=== PATIENT | male | born 1945 | race African-American/Black ===

== ENCOUNTER 2018-09-17 15:43 | Inpatient (IN) ==
[2018-09-17] MEDS ORDERED: NS 1,000 ML IV ONE (16:09)
--- NOTE | 2018-09-17 16:20 | EKG Report ---
Test Performed on : 09/17/2018 3:46:39 PM Test Reason : PALPITATIONS Blood Pressure : / mmHG Vent. Rate : 123 BPM Atrial Rate : 123 BPM P-R Int : 142 ms QRS Dur : 066 ms QT Int : 306 ms P-R-T Axes : 073 -70 084 degrees QTc Int : 438 ms Sinus tachycardia. Biatrial enlargement Left axis deviation Septal infarct (cited on or before 06-AUG-2012) Abnormal ECG When compared with ECG of 29-APR-2015 09:31, QRS axis shifted left Questionable change in initial forces of Anterior leads T wave amplitude has increased in Anterior leads Unconfirmed Result
[2018-09-17 16:31] LABS: BASO# 0.03 X1000 (0.0-0.2); BASO% 0.4 % (0.0-0.8); EOS# 0.06 X1000 (0.0-0.7); EOS% 0.7 % (0.0-10.0); HEMATOCRIT 49.8 % (42.0-52.0); HEMOGLOBIN 17.6 g/dL (14.0-18.0); IMM GRAN# 0.04 X1000 (0.0-0.04); IMM GRAN% 0.5 % (0.0-0.5); LYMPH# 1.99 X1000 (1.2-3.4); LYMPH% 24.3 % (20.5-51.1); MCH 31.5 PG (27-31); MCHC 35.3 g/dL (33-37); MCV 89.1 FL (81-99); MONO# 1.07 X1000 (0.11-0.59); NEUT# 5.01 X1000 (1.4-6.5); NEUT% 61.1 % (42.2-75.2); PLT 184 X1000 (130-400); RBC 5.59 XMIL (4.7-6.1); RDW 15.8 % (11.5-14.5)
--- NOTE | 2018-09-17 16:34 | Diag Imaging Result Doc PS360 ---
CHEST-1 VIEW - 09/17/2018 INDICATION: tachycardia COMPARISON: 05/23/2018 FINDINGS: There is a left suprahilar airspace opacity. This may be an infiltrate or mass. This measures about 4 cm. No other infiltrates. Heart size and pulmonary vascularity is normal. IMPRESSION: Left suprahilar mass. Chest CT recommended. Intravenous contrast is suggested, but optional. Electronically signed by Drew Charles 09/17/2018 4:31 PM
[2018-09-17 17:04] LABS: AGAP 13; CHLORIDE 92 mmol/L (98-107); GLUCOSE 128 mg/dL (70-104); POTASSIUM 4.3 mmol/L (3.5-5.1); SODIUM 129 mmol/L (136-145); TCO2 24 mmol/L (25-35)
[2018-09-17 17:05] LABS: ALB/GLOB RATIO 0.9; ALKALINE PHOSPHATASE 129 U/L (32-122); BUN 15 mg/dL (8-22); CALCIUM 9.4 mg/dL (8.8-10.2); COSMO 261; CREATININE 0.9 mg/dL (0.7-1.2); ESTIMATED GFR > 60; GOT 25 U/L (10-34); GPT 19 U/L (10-44); MAGNESIUM 2.1 mg/dL (1.5-2.7); TOTAL BILIRUBIN 0.49 mg/dL (0.20-1.00); TOTAL PROTEIN 8.5 g/dL (6.3-8.3)
[2018-09-17 18:27] LABS: URINE SOURCE CLEAN CATCH
[2018-09-17 18:47] LABS: BILIRUBIN URINE NEGATIVE (NEGATIVE); BLOOD URINE SMALL (NEGATIVE); COLOR YELLOW; GLUCOSE URINE NEGATIVE (NEGATIVE); KETONE URINE NEGATIVE (NEGATIVE); LEUKOCYTES URINE NEGATIVE (NEGATIVE); NITRITE URINE NEGATIVE (NEGATIVE); PH URINE 6.5; PROTEIN URINE NEGATIVE (NEGATIVE); SP GRAVITY URINE 1.014; TURBIDITY URINE CLEAR (CLEAR); UROBILINOGEN URINE NORMAL (NORMAL)
[2018-09-17 18:48] LABS: UR EPITHELIAL CELLS <10 /HPF (<10); URINE BACTERIA NEGATIVE /HPF; URINE WBC <10 /HPF (<10)
--- NOTE | 2018-09-17 18:53 | Diag Imaging Result Doc PS360 ---
CT THORAX W/CONTRAST - 09/17/2018 INDICATION: Left lung mass COMPARISON: Chest x-ray from earlier FINDINGS: There is a spiculated mass in the left upper lobe contacting the anterior mediastinum. This measures 4 x 4.2 cm in AP and lateral dimensions. There is left tracheobronchial angle and precarinal lymphadenopathy. The largest node area in the left tracheobronchial angle measures 2 x 2.4 cm. Heart size is normal. There is advanced coronary artery disease. There is a partially imaged infrarenal abdominal aortic aneurysm. This measures up to 4.6 x 3.2 cm. There are some small well-defined cysts of the liver. Both adrenal glands are bulky without a specific mass. There is advanced COPD. There is some linear atelectasis or scarring in the right lung base. No infiltrates. There are moderate degenerative changes of the spine. No acute or suspicious bony lesion. IMPRESSION: 1. Suspicious left upper lobe pulmonary mass, likely primary lung cancer. Mild mediastinal adenopathy. 2. Advanced COPD. 3. Vascular disease. Abdominal aortic aneurysm. This exam was performed using automated exposure control, adjustment of mA or kV according to patient size, and/or use of iterative reconstruction technique Electronically signed by Drew Charles 09/17/2018 6:50 PM
--- NOTE | 2018-09-17 19:26 | PROVIDER DOCUMENTATION ---
This chart was entered by Anaya Duong Scribe, acting as scribe for Colin Pastrana MD. HPI-Cardiac General - General Chief Complaint: Palpitations Stated Complaint: PALPITATIONS Time Seen by Provider: 09/17/18 15:54 Source: patient Allergies/Adverse Reactions: Patient Allergies Allergy/AdvReac Type Severity Reaction Status Date / Time No Known Allergies Allergy Verified 03/29/16 19:52 Home Medications: Home Medication List Medication Instructions Recorded Confirmed Last Taken Type Carvedilol [Coreg] 12.5 mg PO Q12H #60 tablet 05/12/15 03/29/16 03/28/16 18:00 Rx Amoxicillin/Pot Clavulanate 875 mg PO Q12HR #14 tablet 03/29/16 Unknown Rx [Augmentin] - History of Present Illness-Cardiac Nature of Presenting Problem: 73 yobm presents to er w/cc pt sent from Dr. Shultz's office for tachycardia and weight loss. pt sts weighs 112lb from 126lbs in 6 months. pt has no fever, headache, nvd, cp or sob. pt has hx of gout and htn. pt has hx of prostate cancer, has had prostate removed and cyst removed off kidney. has abd sx scar. Review of Systems - Adult - REVIEW OF SYSTEMS - ADULT Constitutional: reports: no symptoms reported. denies: fever, fatique, night sweats Eyes: reports: no symptoms reported Ears, Nose, Mouth & Throat: reports: no symptoms reported Cardiovascular: reports: no symptoms reported, irregular heart rate (tachycardia). denies: chest pain, orthopnea, poor circulation, syncope Respiratory: reports: no symptoms reported. denies: chronic cough, shortness of breath, wheezing Gastrointestinal: reports: no symptoms reported. denies: diarrhea, nausea, vomiting Genitourinary: reports: no symptoms reported Musculoskeletal: reports: no symptoms reported Integumentary: reports: no symptoms reported Neurological: reports: no symptoms reported. denies: headache/migraines, s lurred speech, tremors Psychiatric: reports: no symptoms reported Endocrine: reports: no symptoms reported Hematologic/Lymphatic: reports: no symptoms reported Allergic/Immunologic: reports: no symptoms reported All Other Systems: Reviewed and Negative Past History - Adult - PAST MEDICAL HISTORY-ADULT Review of Records: reports: Old Records Reviewed, Nursing Assessment Review, Medications Reviewed, Social history reviewed & non-contributory. Major Childhood Illnesses: reports: denies history Cardiovascular: reports: HTN Respiratory: reports: denies history Gastrointestinal: reports: denies history Obstetrical/Gynecological: reports: denies history Genitourinary: reports: prostate cancer, other (bladder mass) Musculoskeletal: reports: other (gout) Neurological: reports: denies history Endocrine/Immune: reports: denies history Other Conditions: reports: denies history - PRIOR SURGERIES/PROCEDURES Surgical/Procedure History: reports: other (prostate) - IMMUNIZATION STATUS Childhood Immunizations: See Nurse Assessment Flu Vaccine: See Nurse Assessment - FAMILY HISTORY Family History: reviewed, not pertinent - SOCIAL HISTORY Smoking: cigarettes, greater than 1 pack/day Provider spent 3-5 mins advising pt. on dangers of tobacco.: Discussed manners to quit use, and f/u contacts for add'l counseling. Substance Use: none/never (quit drinking 1999) Alcohol Use Frequency: sober (former use) Physical Exam-General - PHYSICAL EXAM-ADULT Initial Vital Signs Reviewed: Yes - CONSTITUTIONAL General Appearance: appears well, alert, no apparent distress, thin. negative: slow to respond, obtunded, combative - EYES Eyes: PERRL/EOMI, pink conjunctivae - HEAD, EARS, NOSE, MOUTH & THROAT HENMT: normocephalic/atraumatic, moist mucous membranes, normal ENT inspection - NECK Neck: non-tender, full range of motion, supple, normal inspection - RESPIRATORY Respiratory: chest non-tender, lungs clear, normal breath sounds - CARDIOVASCULAR Cardiovascular: normal peripheral pulses, no edema, no gallop, no JVD, no murmur , tachycardia. negative: regular rate, rhythm, JVD, bradycardia - GASTROINTESTINAL (ABDOMEN) Abdominal Exam: normal bowel sounds, non tender, soft, no organomegaly, no pulsatile mass, other (larger abd surgical scar). negative: rigid, rebound, tenderness - LYMPHATIC Lymphatic: no adenopathy - MUSCULOSKELETAL Back Exam: normal inspection, no CVA tenderness, no vertebral tenderness Extremity: normal range of motion, non-tender, normal inspection Peripheral Pulses: radial (R): 2+, radial (L): 2+ - SKIN Integumentary: normal color, normal turgor, warm/dry - NEUROLOGIC Neurologic: grossly normal, no motor/sensory deficits, other (cn II-XII norm) - PSYCHIATRIC Psych/Mental Status: normal mood/affect, normal thought content, normal thought process, oriented x 3 Progress - PLAN OF CARE/RESULTS Progress/Plan/Lab Results: Vital Signs - 8 hr 09/17/18 15:46 Temperature 97.7 F Pulse Rate 122 H Respiratory Rate 18 Blood Pressure 113/84 O2 Sat by Pulse Oximetry 91 L Laboratory Results - last 24 hr 09/17/18 09/17/18 09/17/18 16:15 16:15 16:15 WBC 8.20 RBC 5.59 Hgb 17.6 Hct 49.8 MCV 89.1 MCH 31.5 H MCHC 35.3 RDW Std Deviation 15.8 H Plt Count 184 MPV 10.0 Immature Gran % (Auto) 0.5 Neut % (Auto) 61.1 Lymph % (Auto) 24.3 [place] % (Auto) 13.0 H Eos % (Auto) 0.7 Baso % (Auto) 0.4 Immature Gran # (Auto) 0.04 Neut # (Auto) 5.01 Lymph # (Auto) 1.99 [place] # (Auto) 1.07 H Eos # (Auto) 0.06 Baso # (Auto) 0.03 Sodium 129 L Potassium 4.3 Chloride 92 L Carbon Dioxide 24 L Anion Gap 13 BUN 15 Creatinine 0.9 Estimated GFR/1.73 m2 > 60 BUN/Creatinine Ratio 17 Glucose 128 H Calculated Osmolality 261 Calcium 9.4 Magnesium 2.1 Total Bilirubin 0.49 AST 25 ALT 19 Alkaline Phosphatase 129 H Total Protein 8.5 H Albumin 4.0 Globulin 4.5 Albumin/Globulin Ratio 0.9 PSA Screen 0.01 TSH Urine Source Urine Color Urine Turbidity Urine pH Ur Specific [place] Urine Protein Ur Glucose (Stick) Ur Ketones (Stick) Urine Blood Urine Nitrite Urine Bilirubin Urobilinogen Dipstick Urine Leukocytes Urine WBC (Auto) Urine RBC (Auto) U Epithel Cells (Auto) Urine Bacteria (Auto) 09/17/18 09/17/18 16:15 17:25 WBC RBC Hgb Hct MCV MCH MCHC RDW Std Deviation Plt Count MPV Immature Gran % (Auto) Neut % (Auto) Lymph % (Auto) [place] % (Auto) Eos % (Auto) Baso % (Auto) Immature Gran # (Auto) Neut # (Auto) Lymph # (Auto) [place] # (Auto) Eos # (Auto) Baso # (Auto) Sodium Potassium Chloride Carbon Dioxide Anion Gap BUN Creatinine Estimated GFR/1.73 m2 BUN/Creatinine Ratio Glucose Calculated Osmolality Calcium Magnesium Total Bilirubin AST ALT Alkaline Phosphatase Total Protein Albumin Globulin Albumin/Globulin Ratio PSA Screen TSH 0.34 Urine Source CLEAN CATCH Urine Color YELLOW Urine Turbidity CLEAR Urine pH 6.5 Ur Specific [place] 1.014 Urine Protein NEGATIVE Ur Glucose (Stick) NEGATIVE Ur Ketones (Stick) NEGATIVE Urine Blood SMALL A Urine Nitrite NEGATIVE Urine Bilirubin NEGATIVE Urobilinogen Dipstick NORMAL Urine Leukocytes NEGATIVE Urine WBC (Auto) <10 Urine RBC (Auto) 10-20 A U Epithel Cells (Auto) <10 Urine Bacteria (Auto) NEGATIVE Orders Category Date Time Status CHEST-1 VIEW [RAD] Stat Exams 09/17/18 16:[address] THORAX W/CONTRAST [CT] Stat Exams 09/17/18 16:44 Completed CBC WITH DIFF [HEME] Stat Lab 09/17/18 16:15 Completed COMPREHENSIVE METABOLIC PANEL [CHEM] Stat Lab 09/17/18 16:15 Completed MAGNESIUM [CHEM] Stat Lab 09/17/18 16:15 Completed PSA SCREEN Stat Lab 09/17/18 16:15 Completed TSH Stat Lab 09/17/18 16:15 Completed URINALYSIS W/POSS RFLX CULT [URINALYSIS] Stat Lab 09/17/18 17:25 Completed 0.9% Sodium Chloride Inj [Ns] 1,000 ml Med 09/17/18 16:09 Discontinued IV 999 mls/hr EKG [EKG] Stat Ther 09/17/18 15:58 Draft Result Diagrams: 09/17/18 16:15 09/17/18 16:15 - EKG 1 Time of EKG reading by physician:: 15:54 EKG Read and Signed by:: Colin Pastrana EKG Interpretation (*Must complete 3 of following elements*): Abnormal Rate: 123 (bilateral enlargement ) Rhythm: ST [place]: left QRS: normal HI Interval: normal ST Wave: normal Comments: septal infarct, age undertermined - XRAY 1 XRAY Study: Chest Impression: Abnormal, See EMR Report ( CHEST-1 VIEW - 09/17/2018 INDICATION: tachycardia COMPARISON: 05/23/2018 FINDINGS: There is a left suprahilar airspace opacity. This may be an infiltrate or mass. This measures about 4 cm. No other infiltrates. Heart size and pulmonary vascularity is normal. IMPRESSION: Left suprahilar mass. Chest CT recommended. Intravenous contrast is suggested, but optional. Electronically signed by Drew Charles 09/17/2018 4:31 PM) - CT/MRI 1 CT Study: Thorax Impression: Abnormal (CT THORAX W/CONTRAST - 09/17/2018 INDICATION: Left lung mass COMPARISON: Chest x-ray from earlier FINDINGS: There is a spiculated mass in the left upper lobe contacting the anterior mediastinum. This measures 4 x 4.2 cm in AP and lateral dimensions. There is left tracheobronchial angle and precarinal lymphadenopathy. The largest node area in the left tracheobronchial angle measures 2 x 2.4 cm. Heart size is normal. There is advanced coronary artery disease. There is a partially imaged infrarenal abdominal aortic aneury sm. This measures up to 4.6 x 3.2 cm. There are some small well-defined cysts of the liver. Both adrenal glands are bulky without a specific mass. There is advanced COPD. There is some linear atelectasis or scarring in the right lung base. No infiltrates. There are moderate degenerative changes of the spine. No acute or suspicious bony lesion. IMPRESSION: 1. Suspicious left upper lobe pulmonary mass, likely primary lung cancer. Mild mediastinal adenopathy. 2. Advanced COPD. 3. Vascular disease. Abdominal aortic aneurysm. This exam was performed using automated exposure control, adjustment of mA or kV according to patient size, and/or use of iterative reconstruction technique Electronically signed by Drew Charles 09/17/2018 6:50 PM 09/17/18 1850 Interpreting Physician: Drew Charles MD Dictated Date/Time: 09/17/18 1845 cc: Colin Pastrana MD; Radha Shultz MD) - CONSULTS/PCP/HOSPITALIST Notification #1 *Consult/PCP/Hospitalist*: Dejon Time Discussed: 19:26 Consult Disposition: Will see in ED, Admit Departure - Departure Date of Disposition Decision: 09/17/18 Time of Disposition Decision: 19:23 DIAGNOSIS: Mass of upper lobe of left lung, SIADH (syndrome of inappropriate ADH production) Disposition: ADMITTED INPATIENT 09 Certified Medical Emergency: Emergent Condition: Stable Referrals and Follow-Ups: Radha Shultz MD [Primary Care Provider] - - Critical Care Note This patient required my direct & personal management of CC.: No Attestation - Physician/ ZACH Attestation Patient care was provided by Advanced Practice Provider:: No The physician spent face to face time with patient:: Yes Advanced Practice Provider documentation review:: Supervising physician onsite and consulted in the evaluation and care of this patient. The physician did have a face to face encounter with the patient. This chart was documented by the indicated scribe, (Anaya Duong Scribe) and accurately reflects the services I performed and decisions made by me, Colin Pastrana MD, as attested by the provider's signature.
[2018-09-17] MEDS ORDERED: ZOFRAN IV PRN (22:50)
[2018-09-17] MEDS ORDERED: TYLENOL PO PRN (22:53)
[2018-09-17] MEDS ORDERED: NS 1,000 ML IV SCH (23:00)
[2018-09-17 23:31] LABS: INR 0.96; PROTIME 13.6 Seconds (11.0-16.0)
[2018-09-18 06:49] LABS: BASO# 0.03 X1000 (0.0-0.2); BASO% 0.4 % (0.0-0.8); EOS# 0.11 X1000 (0.0-0.7); EOS% 1.6 % (0.0-10.0); HEMOGLOBIN 14.9 g/dL (14.0-18.0); IMM GRAN# 0.04 X1000 (0.0-0.04); IMM GRAN% 0.6 % (0.0-0.5); LYMPH# 2.21 X1000 (1.2-3.4); LYMPH% 31.4 % (20.5-51.1); MCH 30.9 PG (27-31); MCHC 34.7 g/dL (33-37); MCV 89.2 FL (81-99); MONO# 0.93 X1000 (0.11-0.59); MONO% 13.2 % (1.7-9.3); MPV 10.5 FL (7.4-10.4); NEUT# 3.72 X1000 (1.4-6.5); NEUT% 52.8 % (42.2-75.2); PLT 168 X1000 (130-400); RBC 4.82 XMIL (4.7-6.1); RDW 15.6 % (11.5-14.5); WBC 7.04 X1000 (4.8-10.8)
[2018-09-18] MEDS: PRILOSEC PO SCH (06:52)
[2018-09-18] MEDS ORDERED: NON-FORMULARY MED (Omeprazole [Prilosec] 40 MG) PO SCH (07:00)
[2018-09-18 07:09] LABS: AGAP 11; BUN 12 mg/dL (8-22); CHLORIDE 98 mmol/L (98-107); COSMO 269; CREATININE 0.8 mg/dL (0.7-1.2); ESTIMATED GFR > 60; GLUCOSE 85 mg/dL (70-104); SODIUM 135 mmol/L (136-145); TCO2 26 mmol/L (25-35)
[2018-09-18] MEDS ORDERED: PLAVIX PO SCH (09:00)
[2018-09-18] MEDS ORDERED: HYDROCHLOROTHIAZIDE PO SCH (09:00)
[2018-09-18] MEDS ORDERED: PRINIVIL PO SCH (09:00)
[2018-09-18 09:05] LABS: BLOOD TYPE ARTERIAL; SAMPLE BLOOD
[2018-09-18 09:06] LABS: ALLEN TEST YES; HCO3-(ACT) 24.8 mmoll (20.0-26.0); O2(CT) 20.7 mL/dL (15.0-23.0); O2HB 94.8 % (95.0-99.0); PCO2(98.6) 36 mmHg (35-45); PO2(98.6) 87 mmHg (60-100); SAO2 98.2 % (95.0-100.0); THB 15.5 g/dL (11.5-17.4); pH(98.6) 7.43 (7.35-7.45)
[2018-09-18] MEDS ORDERED: ALBUTEROL NEB ONE (09:27)
[2018-09-18] MEDS: PRAVACHOL PO SCH (09:36)
--- NOTE | 2018-09-18 10:41 | HISTORY AND PHYSICAL ---
PRIMARY CARE PROVIDER: Radha Shultz MD CHIEF COMPLAINT: Tachycardia and weight loss. HISTORY OF PRESENT ILLNESS: Mr. Tapia is a 73-year-old male, who was seen at Dr. Shultz's office today and was noted to be tachycardic, as well as he informed Dr. Shultz about some recent weight loss. She did have him come to the ER for further evaluation. Upon arrival to the ER, the patient's initial vital signs were temperature 97.7 degrees, heart rate 122, respirations 18, blood pressure is 113/84, oxygen saturation was 91% on room air. EKG performed in the ER showed sinus tachycardia at a rate of 123. The patient states that over the past year he has had some weight loss, though this has increased over the last 6 months. He states in the last 6-month period that he has gone from 126 to 112 in weight. He states that he has not been trying to lose weight. The patient pretty much denies any other symptoms at this time. He denies any headache, dizziness, chest pain, shortness of breath. He does report that he has a chronic cough. He is an every-day smoker, though states this has not worsened. He has not had increased sputum production. He denies any abdominal pain, nausea/vomiting, or diarrhea. He denies any dysuria or urinary frequency. He also denies any pain, numbness, tingling, or swelling in extremities. His daughters were at bedside, and they did state that a few months ago the patient had an isolated episode where he became dizzy and diaphoretic, but from what I understand, the patient sat down and rested and this did resolve. He has not had any further episodes. Unfortunately, the patient is a poor historian when it comes to the history of present illness, past medical history, and his medications. On evaluation in the ER, he was noted to have some mild hyponatremia with a sodium 129. A chest x- ray they performed did show a left suprahilar mass. They did recommend IV contrasted chest CT. A CT thorax with IV contrast was performed, which did show suspicious a left upper lobe pulmonary mass, likely primary lung cancer. There was mild mediastinal adenopathy. There was noted to be advanced COPD and vascular disease with abdominal aortic aneurysm. Given this, the patient will be placed for inpatient admission for further treatment and evaluation. REVIEW OF SYSTEMS: A 14-point review of systems was conducted with the patient, and all were negative except for pertinent positives mentioned in the above HPI. PAST MEDICAL HISTORY: 1. Hypertension. 2. Gout. 3. History of prostate cancer status post prostatectomy. 4. History of a bladder mass. 5. History of colon polyps. 6. History of complicated diverticulitis as well as an extraperitoneal abscess requiring surgical repair. 7. History of vascular disease. 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 De Leon in 2005. The patient takes medication of Plavix since this time. PAST SURGICAL HISTORY: 1. Prostatectomy. 2. Resection of bladder tumor. 3. Exploratory laparotomy for complicated diverticulitis, which did require a colon resection and drainage of an extraperitoneal abscess. 4. There is also an associated bladder surgery for the above surgery secondary to a diverticular abscess that decompressed into the bladder. 5. Previous colonoscopies with colon polyp removal. 6. 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 De Leon. SOCIAL HISTORY: The patient is a current every-day smoker. He smokes approximately 1 pack per day and has done so since his 20s. He also does have a history of frequent alcohol use and states that sometimes it can be as frequent as up to daily. He will take 2 shots of liquor and drink a few beers. There is no known history of illicit drug use. He is retired. His and 2 daughters were present at bedside during my examination. FAMILY HISTORY: Positive for his mother passing away secondary to a tuberculosis infection. His father had a history of lung cancer. He does have a sister who just from heart disease, though did have a history of breast cancer as well. ALLERGIES: Patient has no known allergies. HOME MEDICATIONS: 1. Allopurinol 100 mg p.o. daily. 2. Plavix 75 mg p.o. daily. 3. Hydrochlorothiazide 12.5 mg p.o. daily. 4. Lisinopril 10 mg p.o. daily. 5. Prilosec 40 mg p.o. a.c. 6. Pravachol 40 mg p.o. daily. DIAGNOSTIC DATA: White blood cell count is 8200, hemoglobin 17.6, hematocrit 49.8, platelet count is 184,000. PT 13.6, INR 0.96, PTT is 37. Sodium 129, potassium 4.3, chloride 92, serum bicarbonate 24, BUN 15, creatinine 0.9 with a GFR greater than 60, glucose 128, calcium 9.4, magnesium 2.1. Liver function tests within normal limits except for alkaline phosphatase slightly elevated at 129. PSA screen was 0.01. TSH was 0.34. Urinalysis was obtained via clean catch, was positive for a small amount of blood, though was negative for protein, glucose, ketones, nitrites, leukocytes, white blood cells, or bacteria. EKG showed sinus tachycardia at a rate of 123 with a QTc of 438. Chest x-ray did show a left suprahilar mass and did recommend a chest CT with IV contrast. CT thorax with IV contrast showed a suspicious left upper lobe pulmonary mass, likely primary lung cancer. There was mild mediastinal adenopathy. Advanced COPD. Vascular disease as well as an abdominal aortic aneurysm. Please see full CT report for detailed findings. PHYSICAL EXAMINATION: VITAL SIGNS: Temperature 97.7 degrees, heart rate 89, respirations 20, blood pressure is 113/79, MAP is 82, oxygen saturation was 98% on room air. GENERAL: Mr. Tapia is a pleasant 73-year-old male. He was resting in the ER stretcher. He was in no acute distress. He was awake, alert, and able to answer questions appropriately, though is somewhat of a poor historian related to his medical history. HEENT: Head is atraumatic, normocephalic. Pupils are equal, round, and reactive to light, 3 mm bilaterally and brisk. Oral mucosa was moist. Oropharynx is clear. NECK: Supple. Trachea midline. CARDIOVASCULAR: Patient has S1, S2. No murmurs, gallops, rubs appreciated with a regular rate and rhythm. PULMONARY: Patient has symmetrical chest expansion bilaterally. Lung sounds are clear to auscultation in bilateral full ochoa. ABDOMEN: Soft, nondistended, nontender. Bowel sounds are present in all 4 quadrants and were normoactive. The patient does have a linear abdominal scar noted. EXTREMITIES: No cyanosis or edema noted. Pulse, motor, and sensory were intact in all extremities. Radial pulses were 3+ bilaterally. Pedal pulses were 2+ bilaterally. INTEGUMENTARY: The patient's skin color is normal for his race, is dry and intact. NEUROLOGICAL: Patient is alert and oriented to person, place, time, and situation. He is able to move all extremities. There were no focal neurological deficits noted. ASSESSMENT AND PLAN: 1. Left upper lobe pulmonary mass. For further evaluation and assistance, we have consulted Dr. Kim with Oncology, as well as Dr. Tom with Pulmonology. We will await their evaluation and further recommendations for management. We will continue with incentive spirometry, supplemental oxygen as needed, and we will continue to monitor the patient's respiratory status closely. 2. Fluid volume depletion. This is likely mild. The family does report that the patient does not have the best appetite. He did arrive to the ER slightly tachycardic, but after a fluid bolus, his heart rate is back down into the 80s, though we will continue to monitor this. He will be placed on continuous cardiac telemetry. We will continue with gentle hydration with normal saline at 85 mL per hour. 3. Hypertension. The patient does take hydrochlorothiazide and lisinopril. Though his blood pressure is within normal limits at this time, it has been borderline on the low side with the last reading of 100/69 with a MAP of 76. We will hold these medicines at this time, as well as given that the patient did have some mild hyponatremia with a sodium of 129, we will continue to follow and implement appropriate antihypertensives as necessary. 4. History of vascular disease status post bilateral external iliac artery stenting. We will continue the patient's Plavix. 5. Deep vein thrombosis prophylaxis provided with sequential compression devices. The patient has been placed on the medical floor with telemetry. He will have vital signs q.4 h. We will do strict intake and output, incentive spirometry. He will be on a heart healthy diet. We will repeat a CBC and BMP in the morning. Further orders and recommendations pending hospital course, diagnostic studies, and physician evaluation. Dictated by REYNA Lainez for Toby Ashford MD cc: Toby Ashford MD
[2018-09-18] MEDS: NICODERM PATCH TD SCH (13:56)
[2018-09-18] MEDS ORDERED: LOVENOX SUBQ SCH (14:00)
--- NOTE | 2018-09-18 14:05 | HEMO/ONC CONSULTATION ---
DATE: 09/18/2018 REASON FOR CONSULTATION: The patient has been diagnosed with a left upper lobe pulmonary mass with mild mediastinal adenopathy. HISTORY OF PRESENT ILLNESS: The patient is a 73 -year-old male who was seen at his primary care doctor's office, noted to be tachycardic with a history of unintentional weight loss. He was sent to the ER for evaluation where he was found to be tachycardic with a heart rate of 120, and about a 14 pound weight loss over the past 6 months. The patient smokes approximately a pack a day for the last 54 years. He has a chronic smoker's cough as he describes. He denies that it has worsened or his sputum production has increased. Unfortunately the patient is a poor historian and I am unsure of his past history as it is difficult to ascertain. In the emergency room the patient was noted to have low sodium 129 and the chest x-ray showed a left suprahilar mass. A chest CT with IV contrast was performed which revealed a suspicious left upper lobe pulmonary mass likely to be primary lung cancer. There was also mild mediastinal adenopathy, advanced COPD and vascular disease with abdominal aortic aneurysm. PAST MEDICAL HISTORY: 1. Hypertension. 2. Gout. 3. Prostate cancer status post prostatectomy. 4. History of a bladder mass. 5. History of colon polyp. 6. History of complicated diverticulitis as well as extraperitoneal abscess requiring surgical repair. 7. History of vascular disease. PAST SURGICAL HISTORY: 1. Prostatectomy. 2. Resection of bladder tumor. 3. Exploratory laparotomy for complicated diverticulitis which did require a colon resection and drainage of an extraperitoneal abscess. 4. There was also associated bladder surgery but the above surgery secondary to a diverticular abscess, decompressed into the bladder. 5. Previous colonoscopy with colon polyp removal. 6. Bilateral external iliac artery stenting for bilateral external iliac artery stenosis with bilateral claudication [place] [address] De Leon. SOCIAL HISTORY: The patient is a every day smoker, approximately 1 pack per day for the last 54 years, frequent alcohol use, often daily. He states he takes 2 shots of liquor and drinks a few beers. No known history of illicit drug use. REVIEW OF SYSTEMS: The patient denies any abdominal pain, nausea, vomiting, diarrhea, dysuria, pain, fevers or clinical signs of bleeding such as dark or tarry stools. ALLERGIES: No known allergies. HOME MEDICATION: Allopurinol, Plavix, hydrochlorothiazide, lisinopril, Prilosec, and Pravachol. Vital signs: Temperature 98 degrees, pulse rate 85, respiratory rate 18, blood pressure 102/68, O2 saturation 99% on room air, 0/10 pain. PHYSICAL EXAMINATION: General: Very calm elderly gentleman sitting up in bed, in no acute distress. Had some difficulty turning his attention from the TV to discussed with me. Cardiovascular: Normal S1, S2. No murmurs, gallops, or rubs appreciated. Rhythm was regular. Lungs: Clear to auscultation. Normal respiratory effort. Abdomen: Soft, nondistended, nontender. Extremities: No edema noted. Neurological: Awake, alert, and oriented x3. No focal motor deficits noted. LABORATORY: WBC 7.04, hemoglobin 14.9, hematocrit 43, platelet count 168,000, ANC 3.72, sodium 135, potassium 4 point low, creatinine 0.8. CEA 3.5, PSA is 0.01. Chest x-ray and chest CT described in HPI. ASSESSMENT/PLAN: Left upper lobe pulmonary mass: This patient's plan of care will be discussed with Dr. Tom's. We will wait on his evaluation. Continue care per medical and pulmonology recommendations. We will continue to follow along. Dictated by REYNA Shaikh for Bruce Kim MD Patient seen and examined. As above. CT scan reveals left upper lobe mass with lymphadenopathy. Dr. Tom has been consulted. Await tissue diagnosis. Plan for outpatient PET scan. Bruce Kim M.D. cc: Bruce Kim MD [facility]
--- NOTE | 2018-09-18 15:05 | PROGRESS NOTE ---
DATE: 09/18/2018 INTERVAL HISTORY: Mr. Tapia was admitted for tachycardia and weight loss. CT scan of the chest has detected left-sided hilar lung mass with adenopathy. SUBJECTIVE: Patient is feeling fine, denying any complaints at the moment. He is not complaining of shortness of breath. VITAL SIGNS: Currently temperature 98 degrees, pulse 85, respiratory rate 18, blood pressure 102/68, saturating 99% on room air. PHYSICAL EXAMINATION: General: Does not appear in any acute distress. Cachectic with severe protein energy malnutrition. HEENT: Oral cavity is moist. Lungs: Air entry bilaterally equal. No wheeze, rhonchi, crackles. Cardiovascular: S1, S2 normal. No murmur, rub, or gallop. Abdomen: Soft, nontender. Extremities: No lower extremity edema. LABS: Suggestive of improving hyponatremia, resolution of hypochloremia, normal hemoglobin, normal ABG. Carcinoembryonic antigen is within normal limits. MICROBIOLOGY: No data. IMAGING: Chest CT, as mentioned, suggestive of suspicious left upper lobe pulmonary mass, likely primary lung cancer with mediastinal adenopathy, advanced COPD, and abdominal aortic aneurysm which was 4 x 3 cm. ASSESSMENT AND PLAN: 1. Left lung hilar mass with mediastinal adenopathy suspicious for cancer. Pulmonology and Oncology on board. Appreciate recommendation about need for bronchoscopy or CT-guided biopsy. The patient has been counseled about smoking cessation and I will start him on a nicotine patch for tobacco abuse and tobacco use disorder. 2. Hyponatremia hypochloremia, likely because of volume depletion. Now resolved after intravenous fluid resuscitation. Continue him on regular diet. 3. Essential hypertension. I am holding his home carvedilol and lisinopril considering currently normal blood pressure, along with hydrochlorothiazide, which could have contributed to his low blood pressure as well as hyponatremia. 4. History of peripheral arterial disease status post iliac stent. Hold clopidogrel for now considering he may need a biopsy soon. 5. Deep vein thrombosis prophylaxis. I will start him on enoxaparin. 6. Disposition. I will continue to monitor the patient on the floor. Plan of care discussed with the patient and his family at bedside. All of their questions have been answered. cc: Dennis Horton MD
[2018-09-19] MEDS: PRILOSEC PO SCH (06:04)
[2018-09-19] MEDS: NICODERM PATCH TD SCH ×2 (06:10→08:17)
--- NOTE | 2018-09-19 07:16 | PULMONOLOGY CONSULTATION ---
DATE: 09/18/2018 REQUESTING PHYSICIAN: Dr. Horton. REASON FOR CONSULTATION: Left upper lobe mass. HISTORY OF PRESENT ILLNESS: Mr. Tapia is a 73-year-old white male with a greater than 50 pack- year history for tobacco, who was sent to the emergency room for tachycardia and weight loss from his primary care physician. Chest x-ray was performed, which revealed a density in the left suprahilar region. CT scan of the thorax was performed, which revealed significant emphysema, a 4 x 4 cm mass in the left upper lobe against the anterior mediastinum, and an enlarged aortopulmonary lymph node measuring 2 x 2.4 cm. He also has significant coronary artery disease, along with a 4.6 x 3.2 cm aneurysm in his abdomen. PAST MEDICAL HISTORY: 1. COPD with ongoing tobacco use. 2. Peripheral vascular disease, on Plavix. 3. Hypertension. 4. History of prostate cancer. 5. History of colonic polyps. 6. History of complicated diverticulitis. SOCIAL HISTORY: Ongoing tobacco and alcohol use. The patient is retired. Family at the bedside. FAMILY HISTORY: Positive for tuberculosis, lung cancer, and heart disease. REVIEW OF SYSTEMS: Notable for increasing fatigue, decreasing appetite, and increasing weight loss. He reports he has limited exercise, making it difficult to gauge his pulmonary status from history. PHYSICAL EXAMINATION: General: A thin, white male, resting comfortably and in no distress. Vital Signs: Blood pressure 112/66, heart rate 79, respiratory rate 20, oxygen saturation 92% on room air. HEENT: Pupils are equal and reactive. Oropharynx appears clear. Neck: Supple. Chest: Prolonged expiratory phase. Cardiac: S1, S2. Abdomen: Soft. Extremities: Without edema. IMAGING AND LABORATORY DATA: CT scan as per HPI. Arterial blood gas reveals a pH of 7.43, pCO2 of 36, PO2 of 87. White blood count 7.04, hemoglobin 14.9, platelet count 168,000. CEA level is normal at 3.5. IMPRESSION: A 73-year-old with: 1. Lung mass. 2. Significant emphysema on CT scan. 3. Worrisome lymph node in the aortopulmonary window, consistent with metastatic disease. 4. Moderate-sized aortic aneurysm. 5. Ongoing tobacco use/nicotine addiction. 6. Anticoagulation, on Plavix for peripheral vascular disease. RECOMMENDATIONS: 1. Obtain pulmonary function studies. 2. The patient will need to be off Plavix for 7 days. Given the location, I would prefer to pursue a CT-guided biopsy. 3. Recommend outpatient PET scan. 4. Anticipate discharge from the hospital with outpatient procedure due to the requirements to discontinue the Plavix. cc: Dejon Tom MD
[2018-09-19] MEDS: PRAVACHOL PO SCH (08:20)
[2018-09-19] MEDS ORDERED: ZYLOPRIM PO SCH (09:00)
[2018-09-19 12:16] VITALS: BP 110/71
--- NOTE | 2018-09-19 17:04 | HEMO/ONC PROGRESS NOTE ---
DATE: 09/19/2018 HISTORY OF PRESENT ILLNESS/CHIEF COMPLAINT: The patient was sitting up in bed eating his breakfast. He states that he feels very good today. He has no complaints. He understands that we will follow up with him in the outpatient setting to determine any further therapy that may be necessary. He denies any pain at this time. OBJECTIVE: Vital signs: Temperature 98 degrees, pulse rate 85, respiratory rate 18, blood pressure 102/68, O2 saturation 99% on room air, 0/10 pain. PHYSICAL EXAMINATION: General: Very calm elderly gentleman sitting up in bed, in no acute distress. Had some difficulty turning his attention from the TV to discussed with me. Cardiovascular: Normal S1, S2. No murmurs, gallops, or rubs appreciated. Rhythm was regular. Lungs: Clear to auscultation. Normal respiratory effort. Abdomen: Soft, nondistended, nontender. Extremities: No edema noted. Neurological: Awake, alert, and oriented x3. No focal motor deficits noted. ASSESSMENT/PLAN: Left upper lobe pulmonary mass: CT scan reveals left upper lobe mass with lymphadenopathy. Dr. Tom has been consulted. Await tissue diagnosis. Dr. Tom evaluated the patient and would prefer to do an outpatient CT-guided biopsy; however, the patient needs to remain off Plavix for 7 days prior to the procedure. We will follow up with the patient after that procedure regarding the biopsy results and plan from there. The patient is aware of his discharge plan. We will plan for an outpatient PET scan at that time. Dictated by REYNA Shaikh for Bruce Kim MD cc: MD MIRYAM Child
--- NOTE | 2018-09-20 06:45 | DISCHARGE SUMMARY ---
ADMISSION DATE: 09/17/2018 DISCHARGE DATE: 09/19/2018 DISCHARGE DISPOSITION: Home. DISCHARGE CONDITION: Hemodynamically stable. Denies any chest pain or shortness of breath. He has been eating regular food without any difficulty. DISCHARGE INSTRUCTIONS: 1. Do not take your Plavix. Also, we have held your blood pressure medication. 2. Call Dr. Kim's office who is working on scheduling outpatient CT-guided biopsy as well as PET scan for lung mass for staging. 3. Follow up with your regular doctor and cancer doctor Dr. Kim. DISCHARGE DIAGNOSES: 1. Left upper lobe lung mass with lymphadenopathy. 2. Ongoing tobacco abuse. 3. Hyponatremia. 4. Hypochloremia due to volume depletion. OTHER DIAGNOSES: 1. History of essential hypertension. 2. History of peripheral arterial disease status post iliac stent on Plavix. 3. History of gout. 4. History of prostate cancer status post prostatectomy. 5. History of diverticulitis. 6. History of bilateral external iliac artery stenting for stenosis in 2005. DISCHARGE MEDICATIONS: 1. Pravastatin 40 mg daily. 2. Omeprazole 40 mg in the morning time. 3. Allopurinol 100 mg daily. 4. Nicotine patch 14 mg daily. VITALS: At the time of discharge, temperature 98.6 degrees, pulse 80, respiratory rate 20, blood pressure 120/77 and saturating 99% on room air. PHYSICAL EXAMINATION: General: Does not appear in any acute distress. HEENT: Oral cavity is moist. Lungs: Air entry bilaterally equal. No wheeze, rhonchi or crackles. Heart: S1, S2 normal. No murmur, rub, or gallop. Abdomen: Scaphoid, soft, nontender. No lower extremity edema. He does appear to have cachexia and severe protein energy malnutrition. Neurologic: He is alert and oriented x3. His mood appears to be low. LABORATORY: Labs at the time of discharge, WBC 7.0, hemoglobin 14.9, and platelet 168,000, PO2 of 87 on room on room air, pH of 7.4, sodium 135, chloride 98, BUN 12, creatinine of 0.8. MICROBIOLOGY: Significant micro during hospital admission none. IMAGING: Significant imaging during hospital admission chest CT had detected a suspicious left upper lobe pulmonary mass, likely primary lung cancer, mild mediastinal adenopathy, advanced COPD and abdominal aortic aneurysm of about 4 x 3 cm. HOSPITAL COURSE SUMMARY: Mr. Tapia is a 73 year old man with active tobacco abuse who has been having poor p.o. intake and about 15 pounds unintentional weight loss over last 3 months, who had seen his regular doctor where he was found to be tachycardic so he was sent to the emergency room. In the emergency room, he was found to have a heart rate of 122 on arrival with EKG suggestive of sinus tachycardia. He also was found to have hyponatremia and hypochloremia with sodium of 129, chloride of 92. He was admitted for intravenous fluids. Chest x-ray performed to rule out any pneumonia had detected left upper lobe mass for which he underwent a chest CT which indeed detected left upper load likely primary lung cancer mass with adenopathy. Pulmonology was consulted. However, patient was taking clopidogrel for his history of peripheral artery disease at home so it was decided to wait until at least 7 days before biopsy could be performed, and Pulmonology has recommended CT-guided lung biopsy. I communicated this with the oncologist, Dr. Kim, who was already on board. The plan is for the patient to be discharged to home, have an outpatient follow-up with Dr. Kim, whose team is currently working on scheduling outpatient CT-guided biopsy about 6 days from now to have wearing off of Plavix as well as outpatient PET scan. Plan of care was extensively discussed with the patient and his sister at bedside. All of their questions have been satisfactorily answered. TIME SPENT: More than 30 minutes were spent in discharging the patient. cc: Dennis Horton MD
== END 2018-09-19 14:23 | disposition home or self-care (01) | DRG 180 ==
LOC: ED 15:43 → 4N 22:22 → SUATTDRO 22:22
PROVIDERS: ATTEND Internal Medicine
CPT/HCPCS: 71010; 71045; 71260; 80048; 80053; 81001; 82378; 82805; 83615; 83735; 84153; 84443; 85025; 85610; 85730; 93005; 94060; 94375; 94726; 94729; 94760; 94761; 94799; A9270; G0103; J1650; J7030; Q9967; XXXXX